=== PATIENT | female | born 1975 | race Two or more races ===

== ENCOUNTER 2020-12-24 05:44 | Day surgery (SDC) | payer OTHER ==
[~2020-12-24 05:44] MED LIST: MULTIVITAMINS1 EAC8 PO; PERCOCET 5/3251 TAB PO
== END 2020-12-24 14:30 | disposition home or self-care (01) ==
LOC: CIR.AMB 05:44
PROVIDERS: ATTEND Specialist
DX: N84.0 Polyp of corpus uteri (principal); N72 Inflammatory disease of cervix uteri; Z20.828 Contact with and (suspected) exposure to other viral communicable diseases

== ENCOUNTER 2022-03-20 07:15 | Inpatient (IN) | payer OTHER ==
[~2022-03-20] VITALS: Ht 152.4 cm; Wt 55.8 kg
[2022-03-27] MEDS ORDERED: IBU800 MG PO (07:56)
[2022-03-27] MEDS ORDERED: IBUPROFEN800 MG PO (08:06)
== END 2022-03-27 09:00 | disposition home or self-care (01) | DRG 743 ==
LOC: O/R 03-24 05:37 → OB/GYN 03-24 05:37
PROVIDERS: ADMIT Specialist; ATTEND Specialist
PROC: 0UT70ZZ Resection of Bilateral Fallopian Tubes, Open Approach (ICD-10-PCS; 2022-03-24)
PROC: 0UT20ZZ Resection of Bilateral Ovaries, Open Approach (ICD-10-PCS; 2022-03-24)
PROC: 0UT90ZZ Resection of Uterus, Open Approach (ICD-10-PCS; principal; 2022-03-24 07:00)
DX: D25.1 Intramural leiomyoma of uterus (principal); Z20.822 Contact with and (suspected) exposure to COVID-19; N72 Inflammatory disease of cervix uteri